=== PATIENT | female | born 1965 | race African-American/Black ===

== ENCOUNTER 2016-11-06 06:27 | Emergency (ER) | payer BC, MEDICAID, OTHER ==
[~2016-11-06] VITALS: Ht 160 cm; Wt 45.4 kg
[2016-11-06] MEDS ORDERED: predniSONE 20 MG TAB PO ONE (07:30)
[2016-11-06 08:23] VITALS: BP 129/86
== END 2016-11-06 09:45 | disposition home or self-care (01) ==
LOC: ER 06:27 → EDBD 06:27 → ER 09:45
DX: J44.1 Chronic obstructive pulmonary disease with (acute) exacerbation (principal); F17.210 Nicotine dependence, cigarettes, uncomplicated
CPT/HCPCS: 71020; 93005; 99284; J7512

== ENCOUNTER 2017-04-15 05:34 | Emergency (ER) | payer SELFPAY ==
[~2017-04-15] VITALS: Ht 160 cm; Wt 40.8 kg
[2017-04-15 05:41] VITALS: BP 181/120
[2017-04-15] MEDS ORDERED: methylPREDNISolone SOD SUCC 40 MG/ML VL IV ONE (06:00)
[2017-04-16] MEDS ORDERED: ALBUTEROL SULF 2.5 MG/0.5ML(0.5%) NEB SOLN ONE (07:28)
[2017-04-16] MEDS ORDERED: IPRATROPIUM BROM 0.5 MG/2.5ML INH SOL ONE (07:28)
== END 2017-04-15 06:43 | disposition left against medical advice (07) ==
LOC: ER 05:34 → EDBD 05:34 → EDUNIT# 05:34 → ER 06:43
DX: R06.02 Shortness of breath (principal); Z53.21 Procedure and treatment not carried out due to patient leaving prior to being seen by health care provider
CPT/HCPCS: 71010; 93005; 94660

== ENCOUNTER 2017-04-16 07:26 | Emergency (ER) | payer SELFPAY ==
[~2017-04-16] VITALS: Ht 162.6 cm; Wt 40.8 kg
[2017-04-16] MEDS ORDERED: SODIUM CHLORIDE 0.9% 1,000 ML IV ONE (07:33)
[2017-04-16] MEDS ORDERED: methylPREDNISolone SOD SUCC 125 MG/2 ML VL IV ONE (07:45)
[2017-04-16] MEDS ORDERED: IPRATROPIUM BROM 0.5 MG/2.5ML INH SOL NEB ONE (07:45)
[2017-04-16] MEDS ORDERED: ALBUTEROL SULF 2.5 MG/0.5ML(0.5%) NEB SOLN NEB ONE (07:45)
[2017-04-16] MEDS ORDERED: cloNIDine HCL 0.1 MG TAB ONE (09:18)
[2017-04-16] MEDS ORDERED: cloNIDine HCL 0.1 MG TAB PO ONE (09:30)
[2017-04-16 10:19] VITALS: BP 145/86
== END 2017-04-16 10:53 | disposition home or self-care (01) ==
LOC: EDBD 07:26 → ER 07:26
DX: J44.1 Chronic obstructive pulmonary disease with (acute) exacerbation (principal); F17.210 Nicotine dependence, cigarettes, uncomplicated
CPT/HCPCS: 71010; 94644; 96374; 99285; J2930; J7030

== ENCOUNTER 2017-04-20 06:39 | Inpatient (IN) | payer BC ==
[~2017-04-20] VITALS: Ht 162.6 cm; Wt 34.6 kg
[2017-04-20] MEDS ORDERED: IPRATROPIUM BROM 0.5 MG/2.5ML INH SOL HHN ONE (06:45)
[2017-04-20] MEDS ORDERED: ALBUTEROL SULF 2.5 MG/0.5ML(0.5%) NEB SOLN HHN ONE (06:45)
[2017-04-20] MEDS ORDERED: methylPREDNISolone SOD SUCC 125 MG/2 ML VL IV ONE (06:45)
[2017-04-20 08:35] LABS: Basophils # (auto) 0.1 uL; Eosinophils # (auto) 0.1 uL; Hemoglobin 12.3 g/dL (12.2-16.2); Lymphocytes # (auto) 3.6 uL; Lymphocytes % (auto) 28.4 % (10.0-50.0); Mean Corpuscular Hemoglobin 25.4 pg (28.0-32.0); Mean Platelet Volume 7.2 fL (6.9-10.8); Monocytes % (auto) 8.2 % (0.0-12.0); Neutrophils # (auto) 7.8 uL; Nucleated Red Blood Cells % 0.1 %
[2017-04-20 08:36] LABS: Basophils % (auto) 0.5 % (0.0-2.0); Eosinophils % (auto) 0.9 % (0.0-7.0); Hematocrit 37.3 % (36.0-46.0); Mean Corpuscular Hgb Conc. 32.9 g/dL (32.0-36.0); Mean Corpuscular Volume 77.1 fL (80.0-100.0); Platelet Count (auto) 240 10^3/uL (140-450); Red Cell Distribution Width 16.3 % (11.8-14.3); White Blood Cell 12.6 10^3/uL (4.4-10.8)
[2017-04-20] MEDS ORDERED: LACTULOSE 20Gm/30ML SOLN PO PRN (08:45)
[2017-04-20] MEDS ORDERED: ACETAMINOPHEN 500 MG TAB PO PRN (08:45)
[2017-04-20] MEDS ORDERED: TEMAZEPAM 15 MG CAP PO PRN (08:45)
[2017-04-20] MEDS ORDERED: MORPHINE SULF INJ 2 MG/ML SYRINGE 1ML IV PRN ×2 (08:45)
[2017-04-20] MEDS ORDERED: NITROGLYCERIN 0.4 MG SL TAB SL PRN (08:45)
[2017-04-20] MEDS ORDERED: PROMETHAZINE HCL 25 MG/ML 1ML IV PRN (08:45)
[2017-04-20] MEDS ORDERED: ALBUTEROL SULF 2.5 MG/0.5ML(0.5%) NEB SOLN NEB PRN (08:45)
[2017-04-20 08:50] LABS: Albumin 3.5 g/dL (3.4-5.0); BUN/Creatinine Ratio 31.9; Calcium 8.3 mg/dL (8.5-10.1); Magnesium 2.3 mg/dL (1.6-2.6); Potassium 3.5 mmol/L (3.5-5.1)
[2017-04-20 08:55] LABS: Bilirubin, Total 0.5 mg/dL (0.2-1.0); Total Protein 6.7 g/dL (6.4-8.2)
[2017-04-20] MEDS: AZITHROMYCIN 500MG/D5W 250ML 250 ML IV SCH (11:09)
[2017-04-20] MEDS: SODIUM CHLORIDE 0.9% 1,000 ML IV SCH ×2 (11:09→22:04)
[2017-04-20] MEDS: ENOXAPARIN SOD 40 MG/0.4 ML SYRINGE SC SCH ×2 (11:10→11:15)
[2017-04-20] MEDS: methylPREDNISolone SOD SUCC 40 MG/ML VL IV SCH ×2 (11:20→18:32)
[2017-04-20] MEDS: LORazepam 0.5 MG TAB PO PRN (11:20)
[2017-04-20] MEDS: ALBUTEROL SULF 2.5 MG/0.5ML(0.5%) NEB SOLN NEB SCH ×2 (11:27→18:30)
[2017-04-20] MEDS: IPRATROPIUM BROM 0.5 MG/2.5ML INH SOL NEB SCH ×2 (11:27→18:30)
[2017-04-20 11:33] LABS: Hepatitis B Surface Antibody Negative
[2017-04-20] MEDS: HYDROcodone-ACET 5/325MG TAB PO PRN ×2 (15:36→22:08)
[2017-04-20 20:32] VITALS: BP 145/78
[2017-04-21] MEDS: methylPREDNISolone SOD SUCC 40 MG/ML VL IV SCH ×5 (00:11→23:38)
[2017-04-21] MEDS: ALBUTEROL SULF 2.5 MG/0.5ML(0.5%) NEB SOLN NEB SCH ×5 (01:00→23:56)
[2017-04-21] MEDS: IPRATROPIUM BROM 0.5 MG/2.5ML INH SOL NEB SCH ×5 (01:01→23:56)
[2017-04-21 01:30] VITALS: BP 133/86
[2017-04-21] MEDS ORDERED: HYDR-4683 PO (01:50)
[2017-04-21] MEDS ORDERED: ALBUAER3 IN (01:50)
[2017-04-21] MEDS ORDERED: ALPR0.5T PO (01:50)
[2017-04-21] MEDS ORDERED: PRED1SOL29 PO (01:50)
[2017-04-21 05:00] VITALS: BP 112/72
[2017-04-21 09:00] VITALS: BP 148/92
[2017-04-21] MEDS: ENOXAPARIN SOD 40 MG/0.4 ML SYRINGE SC SCH (10:00)
[2017-04-21] MEDS: AZITHROMYCIN 500MG/D5W 250ML 250 ML IV SCH (10:32)
[2017-04-21] MEDS: SODIUM CHLORIDE 0.9% 1,000 ML IV SCH (11:03)
[2017-04-21] MEDS: LORazepam 0.5 MG TAB PO PRN ×2 (11:09→19:49)
[2017-04-21 13:00] VITALS: BP 140/89
[2017-04-21] MEDS: HYDROcodone-ACET 5/325MG TAB PO PRN (16:18)
[2017-04-21 16:37] VITALS: BP 149/95
[2017-04-21] MEDS ORDERED: MORPHINE SULFATE 10 MG/ML INJ 1ML SDV IV PRN (17:15)
[2017-04-21 22:00] VITALS: BP 126/81
[2017-04-22] MEDS: SODIUM CHLORIDE 0.9% 1,000 ML IV SCH ×2 (03:30→14:02)
[2017-04-22 05:00] VITALS: BP 141/96
[2017-04-22] MEDS: methylPREDNISolone SOD SUCC 40 MG/ML VL IV SCH ×4 (05:36→23:52)
[2017-04-22] MEDS: HYDROcodone-ACET 5/325MG TAB PO PRN ×3 (06:15→21:35)
[2017-04-22] MEDS: ALBUTEROL SULF 2.5 MG/0.5ML(0.5%) NEB SOLN NEB SCH ×3 (07:07→19:59)
[2017-04-22] MEDS: IPRATROPIUM BROM 0.5 MG/2.5ML INH SOL NEB SCH ×3 (07:07→19:59)
[2017-04-22 09:00] VITALS: BP 126/71
[2017-04-22 09:57] LABS: Allen Test Yes; Base Excess 2.6 mmol/L (-2.0-2.0); Blood 02Sat 94.1 % (96-100); Blood COHb 2.9 % (0.5-1.5); Blood MetHb 0.3 % (0.0-1.5); HCO3 27.8 mmol/L (22-26.0); HHb 5.7 % (0.0-5.0); MODE ROOM AIR; O2Hb 91.1 % (94.0-97.0); PCO2 44.8 mmHg (35.0-45.0); PCO2(T) 44.8 mmHg (35.0-45.0); PO2 74.1 mmHg (80.0-100.0); PO2(T) 74.1 mmHg (80.0-100.0); Room 0275T; Sample Type Arterial
[2017-04-22] MEDS: ENOXAPARIN SOD 40 MG/0.4 ML SYRINGE SC SCH (10:00)
[2017-04-22] MEDS: AZITHROMYCIN 500MG/D5W 250ML 250 ML IV SCH (10:48)
[2017-04-22] MEDS: LORazepam 0.5 MG TAB PO PRN ×2 (11:26→21:35)
[2017-04-22 13:00] VITALS: BP 124/96
[2017-04-22 17:00] VITALS: BP 145/99
[2017-04-22 22:21] VITALS: BP 162/112
[2017-04-22] MEDS ORDERED: hydrALAZINE HCL 20 MG/ML VL IV PRN (22:45)
[2017-04-23] MEDS: ALBUTEROL SULF 2.5 MG/0.5ML(0.5%) NEB SOLN NEB SCH ×4 (00:25→19:55)
[2017-04-23] MEDS: IPRATROPIUM BROM 0.5 MG/2.5ML INH SOL NEB SCH ×4 (00:25→19:55)
[2017-04-23] MEDS: SODIUM CHLORIDE 0.9% 1,000 ML IV SCH ×2 (03:23→16:42)
[2017-04-23 05:37] VITALS: BP 143/95
[2017-04-23] MEDS: HYDROcodone-ACET 5/325MG TAB PO PRN ×3 (05:47→18:20)
[2017-04-23] MEDS: methylPREDNISolone SOD SUCC 40 MG/ML VL IV SCH ×3 (05:47→18:00)
[2017-04-23] MEDS: LORazepam 0.5 MG TAB PO PRN ×3 (05:47→18:20)
[2017-04-23 09:00] VITALS: BP 144/92
[2017-04-23] MEDS: ENOXAPARIN SOD 40 MG/0.4 ML SYRINGE SC SCH (10:00)
[2017-04-23] MEDS: AZITHROMYCIN 500MG/D5W 250ML 250 ML IV SCH (10:00)
[2017-04-23 13:00] VITALS: BP 146/96
[2017-04-23 16:39] VITALS: BP 154/96
[2017-04-23 18:47] VITALS: BP 154/96
== END 2017-04-23 19:15 | disposition home or self-care (01) | DRG 192 ==
LOC: EDBD 06:39 → ER 06:41 → TELE 06:42 → TELE-WESTW 04-21 00:55
PROVIDERS: ADMIT Internal Medicine; ATTEND Internal Medicine
DX: J44.1 Chronic obstructive pulmonary disease with (acute) exacerbation (principal); D72.829 Elevated white blood cell count, unspecified; F17.210 Nicotine dependence, cigarettes, uncomplicated; I10 Essential (primary) hypertension; Z98.51 Tubal ligation status
CPT/HCPCS: 36415; 36600; 71010; 76705; 80053; 82805; 83735; 84484; 85025; 86704; 86706; 86708; 86803; 87340; 93005; 94640; 94644; 96361; 96365; 96375; 99291

== ENCOUNTER 2017-08-19 08:09 | Emergency (ER) | payer BC ==
[~2017-08-19] VITALS: Ht 162.6 cm; Wt 40.8 kg
[~2017-08-19 08:09] MED LIST: ALBUAER3 IN; ALPR0.5T PO; HYDR-4683 PO; PRED1SOL29 PO
[2017-08-19 09:21] LABS: Hematocrit 42.6 % (36.0-46.0); Hemoglobin 13.5 g/dL (12.2-16.2); Mean Corpuscular Hemoglobin 26.3 pg (28.0-32.0); Mean Corpuscular Hgb Conc. 31.8 g/dL (32.0-36.0); Mean Corpuscular Volume 82.9 fL (80.0-100.0); Platelet Count (auto) 254 10^3/uL (140-450); Red Blood Cells 5.14 10^6/uL (4.0-5.20); White Blood Cell 13.8 10^3/uL (4.4-10.8)
[2017-08-19 09:32] LABS: Band Neutrophils % (manual) 0; Basophils % (manual) 0 (0.0-2.0); Blast Cells 0; Metamyelocytes % 0; Myelocytes % 0; Promyelocytes % 0; Reactive Lymphocytes 0
[2017-08-19 09:42] LABS: Alanine Aminotransferase 62 U/L (13-56); Albumin 3.7 g/dL (3.4-5.0); Anion Gap 6 (5-15); Aspartate Aminotransferase 34 U/L (15-37); BUN/Creatinine Ratio 10.5; Blood Urea Nitrogen 6 mg/dL (7-18); Calcium 8.2 mg/dL (8.5-10.1); Carbon Dioxide 33 mmol/L (21-32); Chloride 99 mmol/L (98-107); GFR African American 143 mL/min; GFR Non-African American 118 mL/min; Glucose 87 mg/dL (74-106); Magnesium 2.2 mg/dL (1.6-2.6); Sodium 138 mmol/L (136-145)
[2017-08-19 09:44] LABS: Alkaline Phosphatase 69 U/L (45-117); Bilirubin, Total 0.5 mg/dL (0.2-1.0); Total Protein 6.9 g/dL (6.4-8.2)
[2017-08-19 10:13] LABS: Potassium 2.9 mmol/L (3.5-5.1)
[2017-08-19] MEDS ORDERED: POTASSIUM CHL 10% (20 MEQ/15ML) 15ml ORAL SOLN PO ONE (10:30)
[2017-08-19] MEDS ORDERED: IOHEXOL 350 MG/ML 100ML IJ ONE (11:05)
[2017-08-19 11:16] LABS: Urine WBC None Seen /hpf (0 - 5)
[2017-08-19 11:29] LABS: Eosinophils % (manual) 1 (0-7); Lymphocytes % (manual) 18 (10.0-50.0); Monocytes % (manual) 13 (0-12)
[2017-08-19 11:35] LABS: Urine Bacteria FEW /hpf (None Seen); Urine Blood Negative /uL (Negative); Urine Specific Gravity 1.006 (1.001-1.035)
[2017-08-19 13:00] VITALS: BP 124/87
[2017-08-19] MEDS ORDERED: SODIUM CHLORIDE 0.9% 500 ML IV ONE (13:00)
[2017-08-19] MEDS ORDERED: PANTOPRAZOLE 40 MG TAB PO ONE (13:45)
== END 2017-08-19 14:06 | disposition home or self-care (01) ==
LOC: ER 08:09
DX: J44.1 Chronic obstructive pulmonary disease with (acute) exacerbation (principal); F17.210 Nicotine dependence, cigarettes, uncomplicated; I10 Essential (primary) hypertension; E87.6 Hypokalemia
CPT/HCPCS: 36415; 71045; 71275; 80053; 81001; 83735; 83880; 84484; 85007; 85027; 85379; 93005; 94761; 96360; 99285; J7040; Q9967

== ENCOUNTER 2018-06-22 16:27 | Emergency (ER) | payer BC, MEDICAID ==
[~2018-06-22] VITALS: Ht 167.6 cm; Wt 56.7 kg
[2018-06-22] MEDS ORDERED: CALCIUM CHLOR(10%) 100MG/ML 10ML SYRINGE IV ONE (16:28)
[2018-06-22] MEDS ORDERED: SODIUM BICARBONATE 8.4% INJ 50ML SYRINGE IV ONE (16:28)
[2018-06-22] MEDS ORDERED: EPINEPHrine HCL 1 MG/10 ML SYRG IV ONE (16:28)
[2018-06-22] MEDS ORDERED: SODIUM CHLORIDE 0.9% 1,000 ML IV ONE (17:00)
[2018-06-22] MEDS ORDERED: NOREPINEPHRINE 8 MG/250ML KIT 250 ML IV SCH (17:00)
[2018-06-22] MEDS ORDERED: NOREPINEPHRINE 8 MG/250ML KIT 250 ML IV ONE (17:08)
[2018-06-22 17:21] VITALS: BP 45/24
[2018-06-22] MEDS ORDERED: LEVOFLOXACIN 500MG 100 ML IV ONE (17:30)
[2018-06-22 17:32] LABS: Basophils # (auto) 0 uL; Eosinophils # (auto) 0 uL; Neutrophils # (auto) 14.3 uL
[2018-06-22] MEDS ORDERED: EPINEPHrine HCL 1 MG/10 ML SYRG ONE (17:37)
[2018-06-22 17:40] LABS: INR 0.97 (0.9-1.15); Prothrombin Time 10.4 sec (9.27-12.13)
[2018-06-22 17:46] LABS: Neutrophils % (auto) 89.8 % (37.0-80.0); White Blood Cell 15.9 10^3/uL (4.4-10.8)
[2018-06-22 17:47] LABS: Basophils % (auto) 0.1 % (0.0-2.0); Hemoglobin 10.8 g/dL (12.2-16.2); Lymphocytes # (auto) 0.6 uL; Lymphocytes % (auto) 3.5 % (10.0-50.0); Monocytes % (auto) 6.6 % (0.0-12.0); Nucleated Red Blood Cells % 0.4 %; Red Blood Cells 4.35 10^6/uL (4.0-5.20)
[2018-06-22 17:48] LABS: Hematocrit 34.7 % (36.0-46.0); Mean Corpuscular Hemoglobin 24.8 pg (28.0-32.0); Mean Corpuscular Hgb Conc. 31.1 g/dL (32.0-36.0); Mean Corpuscular Volume 79.7 fL (80.0-100.0); Platelet Count (auto) 249 10^3/uL (140-450); Red Cell Distribution Width 16.1 % (11.8-14.3)
[2018-06-22 18:07] LABS: Alanine Aminotransferase 21 U/L (13-56); Albumin 3.5 g/dL (3.4-5.0); Anion Gap 2 (5-15); Aspartate Aminotransferase 20 U/L (15-37); BUN/Creatinine Ratio 13.5; Blood Alcohol < 3.0 mg/dL (0-5); Blood Urea Nitrogen 7 mg/dL (7-18); Calcium 9.4 mg/dL (8.5-10.1); Chloride 97 mmol/L (98-107); GFR African American 159 mL/min; GFR Non-African American 131 mL/min; Glucose 138 mg/dL (74-106); Magnesium 2.1 mg/dL (1.6-2.6); Potassium 4.7 mmol/L (3.5-5.1); Sodium 140 mmol/L (136-145)
[2018-06-22 18:10] LABS: Lactic Acid w/Reflex 2.2 mmol/L (0.4-2.0)
[2018-06-22 18:12] LABS: Alkaline Phosphatase 196 U/L (45-117); Bilirubin, Total 0.4 mg/dL (0.2-1.0); Total Protein 8.8 g/dL (6.4-8.2)
[2018-06-22 18:26] LABS: Carbon Dioxide 41 mmol/L (21-32)
== END 2018-06-23 09:11 | disposition expired ==
LOC: ER 16:27 → EDBD 16:27 → ER 06-23 09:11
DX: I46.9 Cardiac arrest, cause unspecified (principal); J44.9 Chronic obstructive pulmonary disease, unspecified; Z86.73 Personal history of transient ischemic attack (TIA), and cerebral infarction without residual deficits; Z98.51 Tubal ligation status; Z87.891 Personal history of nicotine dependence
CPT/HCPCS: 31500; 36415; 36556; 36600; 51702; 80053; 80320; 82805; 83605; 83735; 84484; 85025; 85610; 85730; 87040; 87070; 87077; 87186; 87205; 92950; 94761; 96360; 99285; J0171; 94002